=== PATIENT | female | born 1960 | race Caucasian/White ===

== ENCOUNTER 2017-01-03 06:23 | Day surgery (SDC) | payer OTHER ==
[~2017-01-03] VITALS: Ht 170.2 cm; Wt 72.6 kg
[~2017-01-03 06:23] MED LIST: CYCLOBENZAPRINE10 MG PO; LISINOPRIL-HCT1 EACH PO; LISINOPRIL20 MG PO; OMEPRAZOLE20 MG PO; PIROXICAM20 MG PO; ZYRTEC10 MG PO
--- NOTE | 2017-01-03 08:02 | NUR ---
01/03/17 0802 Zenaida Elias PT ARRIVED TO PACU. AWAKE, MAINTAINING AIRWAY. DENIES PAIN OR DISCOMFORT AND NAUSEA. PT PASSING GAS
--- NOTE | 2017-01-15 13:40 | OR ---
[facility] [address], [place] [address] Signed DATE OF PROCEDURE: 01/03/17 PREOPERATIVE DIAGNOSES History of right colon serrated adenoma, 2014, as well as hyperplastic polyps. POSTOPERATIVE DIAGNOSES One small polyp at 40 cm, excised with cold morcellation technique. Minimal diverticular changes, right colon. PROCEDURE Total colonoscopy to cecum with cold morcellation polypectomy x1. SURGEON: Delphine Huff MD. ANESTHESIA Intravenous sedation with Fentanyl 100 mcg and Versed 5 mg. INDICATIONS This 56-year-old white woman is a patient Dr. Cline and underwent colonoscopy by me in 2014, at which time, she was noted to have a serrated adenoma of the right colon. T wo hyperplastic polyps were also excised. She is symptom free, having no family history of colon cancer either. She is here for surveillance colonoscopy based on the serrated adenoma histology noted on the right colon polyp. The risks of bleeding, infection, and perforation related to colonoscopy are reviewed with her. She understands and wished to proceed. FINDINGS The prep was excellent. Complete colonoscopy was undertaken to the cecum. We minimized intravenous sedation per her request so as to avoid post-operative nausea as she had in the past. She was chatting during the course of colonoscopy, but it was well tolerated overall. The prep was excellent. There was a small flat polyp at 40 cm, which was excised with cold morcellation technique and a single diverticulum noted in the right colon, which was of no consequence. The remaining colon was entirely normal. PROCEDURE The patient was brought to the endoscopy suite and placed in lateral decubitus position. Given intravenous sedation to the point of slurred speech and nystagmus. Digital rectal examination was normal. An Olympus video colonoscope was passed in the rectum and manipulated throughout the Electronically Signed By: DELPHINE HUFF MD 01/15/17 2020 PATIENT NAME: DENISE SOTO OPERATIVE REPORT DATE OF : 58 PHYSICIAN: DELPHINE HUFF MD REPORT #: [id number] REPORT IS CONFIDENTIAL AND NOT TO BE RELEASED WITHOUT AUTHORIZATION [facility] [address], [place] [address] Signed colon ultimately intubating the cecum itself. The ileocecal valve and appendiceal orifice were normal. Th e scope was withdrawn from that point and examination throughout undertaken. There was a diverticulum at the right colon, but it was shallow and although broad, certainly showed no sign of problem. Careful withdrawal of scope further showed no other abnormality until 40 cm from the anal verge where a small, flat, slightly hypervascular polyp was noted. Photographs were taken. The polyp was excised with cold morcellation technique completely. Further withdrawal of scope allowed for retroflexed view in the rectum, which showed some hypertrophied anal papillae, but no other abnormality. The scope was removed and the patient taken to recovery room in good condition. CONCLUDING DIAGNOSIS: Small polyp at 40 cm completely excised. PLAN Recommend repeat colonoscopy in 5 years provided pathology shows no sign of serrated changes. MD LEONARD Davis/[employer] /[id number] cc: Abhilash Cline MD Electronically Signed By: DELPHINE HUFF MD 01/15/17 1340 PATIENT NAME: BRITTANYDENISEGwen LEE OPERATIVE REPORT DATE OF : 58 PHYSICIAN: DELPHINE HUFF MD REPORT #: [id number] REPORT IS CONFIDENTIAL AND NOT TO BE RELEASED WITHOUT AUTHORIZATION
== END 2017-01-03 08:25 | disposition home or self-care (01) ==
LOC: DS 06:23 → OPS 06:23 → DS 06:45 → OPS 06:45
PROVIDERS: Surgery
PROC: 0DBE8ZX Excision of Large Intestine, Via Natural or Artificial Opening Endoscopic, Diagnostic (ICD-10-PCS; principal; 2017-01-03 06:45)
DX: Z12.11 Encounter for screening for malignant neoplasm of colon (principal); K63.5 Polyp of colon; K57.30 Diverticulosis of large intestine without perforation or abscess without bleeding; F17.210 Nicotine dependence, cigarettes, uncomplicated; K21.9 Gastro-esophageal reflux disease without esophagitis; I10 Essential (primary) hypertension; Z88.1 Allergy status to other antibiotic agents; Z88.8 Allergy status to other drugs, medicaments and biological substances; Z88.5 Allergy status to narcotic agent; Z98.890 Other specified postprocedural states; Z90.49 Acquired absence of other specified parts of digestive tract
CPT/HCPCS: 99152; 99153; J2250; J3010; J7120

== ENCOUNTER 2018-11-27 06:31 | Day surgery (SDC) | payer OTHER ==
[~2018-11-27] VITALS: Ht 170.2 cm; Wt 72.6 kg
--- NOTE | ~2018-11-27 | OR ---
[facility] [address], [place] [address] Draft DATE OF OPERATION: 11/27/2018 SURGEON: Delphine Huff MD PREOPERATIVE DIAGNOSIS: History of multiple polyps. POSTOPERATIVE DIAGNOSES: 1. Diverticulosis. 2. Polyps x3 at sigmoid. PROCEDURE PERFORMED: Total colonoscopy to cecum with cold morcellation polypectomy x2 and cold snare polypectomy x1. ANESTHESIA: Intravenous sedation, fentanyl 200 mcg and Versed 6 mg. INDICATION: This 58-year-old white woman is a patient Dr. Saud Cline and well known to me from the past. She last underwent colonoscopy two years ago. She has had multiple polyps excised over several years. Indeed, she had a serrated adenoma of the right colon in 2014. She has had multiple polyps going back to 2010. She is highly sensitive regarding colon screening and surveillance and is admitted at this time to undergo colonoscopy once again. Of note, she has no family history of colon cancer. She is admitted at this time to undergo colonoscopy. She understands the risks of bleeding, infection, and perforation. FINDINGS: The prep was sub par compared to usual. Subsequently, it was learned that she "did not do low-fiber every day." In any case, complete colonoscopy was undertaken to the cecum and with irrigation, adequate visualization was accomplished. She had scattered diverticula throughout the colon and 3 small polyps probably hyperplastic in the sigmoid, all of them excised completely. DESCRIPTION OF PROCEDURE: The patient was brought to the endoscopy suite and placed in lateral decubitus position, given intravenous sedation to the point of slurred speech and nystagmus. Digital rectal examination was normal. PATIENT NAME: DENISE SOTO OPERATIVE REPORT DATE OF : 58 REPORT #: [id number] PHYSICIAN: DELPHINE HUFF MD PCP: SAUD CLINE MD REPORT IS CONFIDENTIAL AND NOT TO BE RELEASED WITHOUT AUTHORIZATION [facility] [address] [place], [place] [address] Draft An Olympus video colonoscope was passed in the rectum and manipulated throughout the colon noting scattered diverticula throughout. Her prep was sub par, but with irrigation, the scope was able to be passed ultimately to the cecum. Irrigation was undertaken throughout of course. Several small indigested pills were noted in the cecum itself. The scope was withdrawn from the cecum once adequate clearance was noted, and diverticula were seen in the right colon as well. Careful withdrawal of scope showed no sign of abnormality until the sigmoid where three small polyps were noted. Narrow band imaging confirmed them. They were probably hyperplastic, though one might have been adenomatous. All three were excised, 2 with cold morcellation technique and the 3rd with cold snare technique. Further withdrawal allowed for retroflexed view in the rectum, which was normal. Scope was removed. The patient was taken to recovery room in good condition. CONCLUDING DIAGNOSES: 1. Polyps x3. 2. Diverticulosis. PLAN: Repeat colonoscopy in two years, sooner if symptoms should occur. On next prep, special emphasis to maintain a low-fiber diet for five days, anticipating MiraLAX prep. MD LEONARD Davis/[facility] /[id number] cc: Saud Cline MD Copies: SAUD CLINE MD ~ PATIENT NAME: DENISE SOTO OPERATIVE REPORT DATE OF : 58 REPORT #: [id number] PHYSICIAN: DELPHINE HUFF MD PCP: SAUD CLINE MD REPORT IS CONFIDENTIAL AND NOT TO BE RELEASED WITHOUT AUTHORIZATION
[2018-11-27] MEDS ORDERED: TOPROL XL25 MG (06:49)
--- NOTE | 2018-11-27 08:44 | NUR ---
11/27/18 0844 Shannon Coleman 0839- PT TO PACU AWAKE AND ALERT, ASKING QUESTIONS. DENIES PAIN NAUSEA OR DIZZINESS. BREATHING EASY AND UNLABORED ON 3 L O2 VIA NC. SP02>95%. 0843- PT REQUESTING SOMETHING TO DRINK. ASKING WHEN SHE CAN GO HOME. CONTINUES TO DENY PAIN NAUSEA. BREATHING EASY AND UNLABORED. SP02>95%.
--- NOTE | 2018-11-27 09:35 | NUR ---
PT IS ALERT, ORIENTED AND SUPPORTED BY HER . PT HAS HAD SEVERAL SCOPES AND SEEMS TO COPE WELL WITH PREP. OR STAFF IN TO TAKE PT-EXTENDED A BLESSING, AND WILL FOLLOW NEEDED
== END 2018-11-27 09:15 ==
LOC: DS 06:31 → OPS 06:31 → DS 06:45 → OPS 06:45
PROVIDERS: Surgery
PROC: 0DBN8ZZ Excision of Sigmoid Colon, Via Natural or Artificial Opening Endoscopic (ICD-10-PCS; principal; 2018-11-27 06:45)
DX: Z12.11 Encounter for screening for malignant neoplasm of colon (principal); K63.5 Polyp of colon; K57.30 Diverticulosis of large intestine without perforation or abscess without bleeding; I10 Essential (primary) hypertension; F17.210 Nicotine dependence, cigarettes, uncomplicated; K21.0 Gastro-esophageal reflux disease with esophagitis; Z86.010 Personal history of colon polyps; Z98.890 Other specified postprocedural states
CPT/HCPCS: 99153; G0500; J2250; J3010; J7120